=== PATIENT | male | born 2000 | race African-American/Black ===

== ENCOUNTER 2024-04-02 03:24 | Emergency (ER) | payer MEDICAID ==
[~2024-04-02] VITALS: Ht 175.3 cm; Wt 94.3 kg
[2024-04-02 03:32] VITALS: O2SAT 95
[2024-04-02] MEDS ORDERED: IBUP-2029 MT (04:42)
[2024-04-02] MEDS ORDERED: HYDR-4001 MT (04:43)
[2024-04-02] MEDS: KETOROLAC 30MG/ML VIAL IM ONE (05:48)
[2024-04-02 05:50] VITALS: BP 124/72; PULSE 90; RESP 18; TEMP 97.9
== END 2024-04-02 06:10 | disposition home or self-care (01) ==
LOC: ER 03:35
DX: S52.501A Unspecified fracture of the lower end of right radius, initial encounter for closed fracture (principal); J45.909 Unspecified asthma, uncomplicated; V49.49XA Driver injured in collision with other motor vehicles in traffic accident, initial encounter; Y93.89 Activity, other specified; Y92.89 Other specified places as the place of occurrence of the external cause; Y99.8 Other external cause status
CPT/HCPCS: 99283; 73110; 29125; 96372; J1885